=== PATIENT | male | born 2000 | race Caucasian/White ===

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

== ENCOUNTER 2021-02-08 00:51 | Emergency (ER) | payer SELFPAY ==
[2021-02-08] VITALS (9 sets, daily range): BP systolic 109–149; BP diastolic 63–96; PULSE 60–114; RESP 12–26; TEMP 37.1; O2SAT 96–100
--- NOTE | ~2021-02-08 | CT_ITS ---
EXAMINATION: CTA chest PE protocol EXAM DATE: 02/08/2021 02:12 INDICATION: Chest pain, shortness of breath elevated d-dimer. TECHNIQUE: Spiral CTA of the chest (pulmonary arteries) was performed with 100 cc Omnipaque 350 intr avenous contrast injection. Images were acquired during the pulmonary arterial phase. Coronal maxi mum intensity projection 3D-reconstructions were created by the technologist on dedicated workstation . Axial, coronal and sagittal reformatted images were reviewed. The dose-length product (DLP) for t his examination was 266.83 mGy-cm. The exposure was tailored according to patient size (auto mA exp osure control), and iterative reconstruction (ASIR) was used as additional dose reduction technique. There is no prior study for comparison. FINDINGS: Pulmonary arteries are well opacified and without intraluminal filling defects. No thora cic aortic dissection. The lungs are clear. There are no pleural or pericardial effusions. Trach eobronchial tree is patent. There is no mediastinal, hilar or axillary lymphadenopathy. There is no pneumothorax. Heart normal in size. No evidence of coronary arterial calcification. Upper abd omen is unremarkable. There is thoracic spondylosis without osteoblastic or osteolytic lesions iden tified. IMPRESSION: Normal CT pulmonary exam. Reviewed, dictated and finalized at location A. IMPRESSION: Normal CT pulmonary exam.
--- NOTE | 2021-02-08 01:02 | ECG_ITS ---
Measurements Intervals [place] Rate: 98 P: 69 MD: 130 QRS: 48 QRSD: 93 T: 60 QT: 341 QTc: 436 Interpretive Statements SINUS RHYTHM WITH SINUS ARRHYTHMIA INCOMPLETE RIGHT BUNDLE BRANCH BLOCK BORDERLINE ST ABNORMALITY- LATERAL LEADS BASELINE ARTIFACT- I, II, AVR, AVL BORDERLINE ECG Electronically Signed On 02-08-2021 6:52:13 CDT by Raimundo Michelle D.O.
[2021-02-08 01:15] LABS: Basophils Percent Auto 0.3 % (0.2-1.2); Eosinophils Absolute Auto 0.1 K/mm3 (0-0.3); Eosinophils Percent Auto 1.5 % (0-4.4); Hematocrit 45.5 % (42.0-52.0); Hemoglobin 16.6 g/dL (14.0-18.0); Immature Granulocyte Absolute 0.02 K/mm3 (0.00-0.031); Immature Granulocyte Percent A 0.2 % (0-0.5); Lymphocytes Absolute Auto 4.03 K/mm3 (0.9-3.2); Lymphocytes Percent Auto 46.4 % (18.3-44.2); Mean Corpuscular HGB Conc 36.5 g/dl (32-36); Mean Corpuscular Hemoglobin 32.7 pg (26-34); Mean Corpuscular Volume 89.7 fl (80-100); Monocytes Absolute Auto 0.9 K/mm3 (0.1-0.6); Monocytes Percent Auto 10.8 % (2.6-8.5); Neutrophils Absolute Auto 3.5 K/mm3 (1.3-6.7); Neutrophils Percent Auto 40.8 % (45.5-73.1); Platelet Count Result 214 k/mm3 (150-375); Red Blood Count 5.07 M/mm3 (4.6-6.20); Red Cell Distribution Width 11.8 % (11.5-14.5); White Blood Count 8.7 K/mm3 (4.5-10.0)
[2021-02-08 01:24] LABS: Prothrombin Time 12.6 Seconds (11.1-14.7)
[2021-02-08 01:25] LABS: Partial Thromboplastin Time 23.8 SECONDS (22.3-36.8)
[2021-02-08 01:28] LABS: Alanine Aminotransferase 14 U/L (4-50); Albumin Level 5.3 g/dL (3.7-5.6); Alkaline Phosphatase 63 U/L (58-237); Anion Gap 16 mmol/L (8-16); Aspartate Amino Transferase 26 U/L (17-59); Blood Urea Nitrogen 18 mg/dL (8-21); Calcium 10.2 mg/dL (8.9-10.7); Carbon Dioxide 22 mmol/L (22-30); Chloride 102 mmol/L (98-107); Estimated Glomerular Filt Rate > 60; Glucose 110 mg/dL (65-110); Potassium 3.2 mmol/L (3.4-5.0); Sodium 140 mmol/L (134-143)
[2021-02-08 01:29] LABS: D Dimer 0.81 ug/mL (<0.48)
[2021-02-08] MEDS: KETOROLAC 30 MG/ML VIAL (*BKC) IM (01:29)
--- NOTE | 2021-02-08 01:31 | ED.GENADULT ---
HPI - General Adult General Chief complaint: Shortness of Breath/Dyspnea Stated complaint: sob, loss of appetite, CARLOS, cp Time Seen by Provider: 02/08/21 00:57 History of Present Illness HPI narrative: Patient is a 20-year-old gentleman who presents the emergency department with chief complaint of shortness of breath cough body aches. Patient works at [employer] and multiple coworkers were also ill with similar symptoms. Patient states one of his colleagues was diagnosed with pneumonia today and he was concerned that he may have developed pneumonia. Patient reports he has not been vaccinated for COVID-19 reports that he has been tested 3 other times for Covid and has been negative with those time Related Data Allergies Allergy/AdvReac Type Severity Reaction Status Date / Time No Known Allergies Allergy Verified 02/08/21 01:11 Review of Systems Review of Systems: A 10 system review of systems was completed on the patient and is negative except for what is stated in the HPI. Nursing and ancillary documentation was reviewed. [facility] Past Medical History Medical History ADHD Anxiety Healthy adult male OCD (obsessive compulsive disorder) Surgical History Surgical History No history of previous surgery No pertinent past surgical history Family History Family History Mother No pertinent past medical history Social History Social History Smoking status: Never smoker Alcohol intake: never Substance use: never Additional living arrangements comments: lives with sister Gender identity (if verbalized by the patient): Male Spiritual care concerns: No Exam Narrative: GENERAL: Well-appearing, well-nourished, and in no acute distress. HEAD: Normocephalic, atraumatic. EYES: PERRLA and EOMI. ENT: Nares clear, no rhinorrhea or epistaxis. Mucous membranes moist. NECK: Supple. CHEST: Clear to auscultation. No respiratory distress. HEART: Regular rate and rhythm. No murmur heard. Normal peripheral pulses. ABDOMEN: Soft, nontender, nondistended, normal active bowel sounds. EXTREMITIES: Normal range of motion. No edema. SKIN: Warm, dry, no rash. NEURO: No focal deficits. Alert and oriented x3. PSYCH: Normal mood and affect. Course Vital Signs Vital signs: Vital Signs Temperature 37.1 C 02/08/21 00:55 Pulse Rate 114 H 02/08/21 00:55 Respiratory Rate 16 02/08/21 00:55 Blood Pressure 138/83 02/08/21 00:55 Pulse Oximetry 100 02/08/21 00:55 Temperature 37.1 C 02/08/21 00:55 Pulse Rate 63 02/08/21 03:01 Respiratory Rate 19 02/08/21 03:01 Blood Pressure 109/66 02/08/21 03:01 Pulse Oximetry 97 02/08/21 03:01 Medical Decision Making Vital Signs Vital Signs: Vital Signs Temperature 37.1 C 02/08/21 00:55 Pulse Rate 114 H 02/08/21 00:55 Respiratory Rate 16 02/08/21 00:55 Blood Pressure 138/83 02/08/21 00:55 Pulse Oximetry 100 02/08/21 00:55 Temperature 37.1 C 02/08/21 00:55 Pulse Rate 63 02/08/21 03:01 Respiratory Rate 19 02/08/21 03:01 Blood Pressure 109/66 02/08/21 03:01 Pulse Oximetry 97 02/08/21 03:01 Lab Data Result diagrams: 02/08/21 01:10 02/08/21 01:10 Labs: Lab Results 02/08/21 02/08/21 02/08/21 Range/Units 01:10 01:10 01:10 WBC 8.7 (4.5-10.0) K/mm3 RBC 5.07 (4.6-6.20) M/mm3 Hgb 16.6 (14.0-18.0) g/dL Hct 45.5 (42.0-52.0) % MCV 89.7 (80-100) fl MCH 32.7 (26-34) pg MCHC 36.5 H (32-36) g/dl RDW 11.8 (11.5-14.5) % Plt Count 214 (150-375) k/mm3 MPV 9.0 (7.4-10.4) fl Immature Gran % (Auto) 0.2 (0-0.5) % Neut % (Auto) 40.8 L (45.5-73.1) % Lymph % (Auto) 46.4 H (18.3-44.2) % Mon
[2021-02-08 01:40] LABS: NT Pro B Type Natriuretic Pept 18 pg/mL (5-100); Troponin I < 0.012 ng/mL (0.000-0.034)
--- NOTE | 2021-02-08 01:55 | PC.NURSE ---
Pt to imaging at this time.
[2021-02-08 02:34] LABS: EDCOVIDSCREEN Negative (Negative)
== END 2021-02-08 03:25 | disposition home or self-care (01) ==
PROVIDERS: Emergency Provider Emergency Medicine; PCP Family Medicine
DX: J20.8 Acute bronchitis due to other specified organisms (principal); R07.89 Other chest pain; Z20.822 Contact with and (suspected) exposure to COVID-19
CPT/HCPCS: 36415; 71275; 80053; 83880; 84484; 85025; 85380; 85610; 85730; 87426; 93005; 96372; 99284; C9803; J1885; Q9967

== ENCOUNTER 2023-11-26 19:47 | Emergency (ER) | payer BC, SELFPAY ==
--- NOTE | ~2023-11-26 | CT_ITS ---
CT abdomen pelvis wo con Ordering provider: Kassi Marcial PA-C History: . low abd pain/ testicular pain . Comparison: None. Technique: CT abdomen without IV and without oral contrast. The dose-length product was 230.4 mGy-cm. . Findings: VISUALIZED LOWER CHEST: Normal. UPPER ABDOMINAL ORGANS: Liver: Normal. Gallbladder: Normal. Spleen: Normal. Stomach/duodenum: Normal. Pancreas: Normal. Adrenals: Normal. Kidneys: Normal. VISUALIZED BOWEL AND MESENTERY: No evidence of diverticulitis. Normal appendix. Fluid is seen in the small bowel which may indicate enteritis are in the area. Clinical correlation advised. No free air o r free fluid. No mesenteric lymphadenopathy. RETROPERITONEUM: Normal aorta. No retroperitoneal lymphadenopathy. MUSCULOSKELETAL: The superficial soft tissues are normal. Normal spine. IMPRESSION: No acute abdominal process with no evidence of obstruction, diverticulitis or appendicitis. Fluid filled small bowel loops are noted which may indicate diarrhea or enteritis. Clinical correlati on advised. Reviewed, dictated and finalized at location A. IMPRESSION: No acute abdominal process with no evidence of obstruction, diverticulitis or a ppendicitis. Fluid filled small bowel loops are noted which may indicate diarrhea or enterit is. Clinical correlation advised.
--- NOTE | ~2023-11-26 | US_ITS ---
TESTICULAR ULTRASOUND (Doppler ultrasound interrogation techniques used as needed for this exam.) Ordering provider: Kassi Marcial PA-C History: . testicular pain . Comparison: None. FINDINGS: TESTICLES: Normal in size. The right measures 5x 3x 2.9 cm and the left measures 4.8x 2.9x 3 cm. Norm al echogenicity bilaterally without mass lesion. Normal Doppler flow bilaterally. Appendix testis is seen in the right side measuring 0.4 x 0.2 x 0.2 cm. EPIDIDYMIDES: Normal in size. The right measures 0.9 cm and the left 0.9 cm. Normal echogenicity hank aterally. Both demonstrate normal Doppler flow. HYDROCELE: Right with debris. VARICOCELE: The right measures 0.3 cm in the left 0.2 cm. OTHER ABNORMALITY: None seen. IMPRESSION: Right hydrocele. No evidence of torsion. Otherwise, normal testicular ultrasound. Reviewed, dictated and finalized at location A. IMPRESSION: Right hydrocele. No evidence of torsion. Otherwise, normal testicular ultrasoun d.
[2023-11-26 20:24] VITALS: BP 139/92; PULSE 79; RESP 21; TEMP 37.1; O2SAT 100
[2023-11-26 20:55] LABS: Appearance Urine Clear (Clear); Bilirubin Urine Negative (Negative); Blood Urine Negative (Negative); Color Urine Yellow (Yellow); Glucose Urine UA Negative (Negative); Ketones Urine Negative (Negative); Leukocyte Esterase Ur Negative LEU/UL (Negative); Nitrate Urine Negative (Negative); Protein Urine Negative (Negative); Specific Grav Ur 1.023 (1.001-1.035); Urobilinogen Urine 0.2 mg/dL (<2.0)
[2023-11-26 21:03] LABS: Add Urine Microscopic? NO
[2023-11-26] MEDS: KETOROLAC 30 MG/ML VIAL (*BKC) IM (21:15)
[2023-11-26 22:01] LABS: Trichomonas Vag PCR NOT DETECTED (NOT DETECTE)
[2023-11-26] MEDS: MORPHINE SULFATE (*CRX) 4 MG/ML INJ IV PUSH (22:16)
--- NOTE | 2023-11-26 22:16 | ED.MALEGU ---
HPI - Male Genitourinary General Chief complaint: Urogenital-Male Stated complaint: testicle pain Time Seen by Provider: 11/26/23 20:28 Source: patient Mode of arrival: ambulatory Limitations: no limitations History of Present Illness HPI Narrative: This is a 23-year-old male that presents to the emergency department for right testicular pain. Ongoing over the last week. Worsening tonight. Reports some associated dysuria. Denies fever, vomiting, or hematuria. Related Data Allergies Allergy/AdvReac Type Severity Reaction Status Date / Time No Known Allergies Allergy Verified 02/08/21 01:11 Review of Systems Review of Systems: CONSTITUTIONAL: Denies fever GASTROINTESTINAL: Reports abdominal pain, nausea. Denies vomiting, or diarrhea. GENITOURINARY: Reports dysuria. Denies hematuria. SKIN: Denies rash All systems reviewed & are unremarkable except as noted in HPI and below PMFSH Past Medical History Medical History ADHD Anxiety Healthy adult male OCD (obsessive compulsive disorder) Surgical History Surgical History No history of previous surgery No pertinent past surgical history Family History Family History Mother No pertinent past medical history Social History Social History Smoking status: Never smoker Alcohol intake: never Substance use: never Living arrangements: with family Additional living arrangements comments: lives with sister Gender identity (if verbalized by the patient): Male Spiritual care concerns: No Exam Narrative: GENERAL: Well-appearing, well-nourished, and in no acute distress. HEAD: Normocephalic, atraumatic. EYES: EOMI. CHEST: No respiratory distress. HEART: Regular rate ABDOMEN: Soft, nontender, nondistended, normal active bowel sounds. EXTREMITIES: Normal range of motion. No edema. SKIN: Warm, dry, no rash. NEURO: No focal deficits. Alert and oriented x3. PSYCH: Normal mood and affect MALE GENITAL: Normal external genitalia. No erythema or edema of the scrotum. Right testicle tender to palpation. No abnormal rashes or lesions. No abnormal urethral discharge Course Course Emergency Course: patient updated on his workup and agrees with plan of care Vital Signs Vital signs: Vital Signs Temperature 98.8 F 11/26/23 20:24 Pulse Rate 79 11/26/23 20:24 Respiratory Rate 21 H 11/26/23 20:24 Blood Pressure 139/92 H 11/26/23 20:24 Pulse Oximetry 100 11/26/23 20:24 Oxygen Delivery Room Air 11/26/23 20:24 Temperature 98.8 F 11/26/23 20:24 Pulse Rate 48 L 11/26/23 23:34 Respiratory Rate 13 11/26/23 23:34 Blood Pressure 118/66 11/26/23 23:34 Pulse Oximetry 99 11/26/23 23:34 Oxygen Delivery Room Air 11/26/23 20:24 MDM - Male Genitourinary MDM Narrative Medical decision making narrative: patient presents to the emergency department for right testicular pain. Ongoing over the last week. Reports similar episodes of this that have been ongoing over the last 3 years. He has not seen urology for this. He is afebrile and nontoxic appearing. His vitals are stable. CBC with mild leukocytosis to 12.9. Also shows normocytic anemia hemoglobin 13.9. Metabolic panel with mild hypokalemia. This was replaced. Urine without evidence of infection. Chlamydia, gonorrhea, Trichomonas are negative. CT abdomen pelvis shows findings of diarrhea. Scrotal ultrasound shows a right hydrocele. No evidence of torsion. Patient updated on his workup and agrees with plan of care. He will be given follow-up with urology. He was given warnings to return to the ER Differential Diagnosis Differential diagnosis: Likely urinary tract infection, urethritis, epididymitis and other ( testicular tors
[2023-11-26] MEDS: ONDANSETRON INJ 4 MG/2 ML VIAL IV PUSH (22:17)
[2023-11-26 22:25] LABS: Chlamydia trachomatis NOT DETECTED (NOT DETECTE); Neisseria gonorrhoeae PCR NOT DETECTED (NOT DETECTE)
[2023-11-26 22:45] VITALS: BP 116/69; PULSE 61; RESP 15; O2SAT 99
[2023-11-26 22:57] LABS: Basophils Absolute Auto 0.1 K/mm3 (0.0-0.1); Basophils Percent Auto 0.4 % (0.2-1.2); Eosinophils Percent Auto 0.2 % (0-4.4); Hematocrit 37.5 % (42.0-52.0); Hemoglobin 13.9 g/dL (14.0-18.0); Immature Granulocyte Absolute 0.05 K/mm3 (0.00-0.031); Immature Granulocyte Percent A 0.4 % (0-0.5); Lymphocytes Absolute Auto 1.94 K/mm3 (0.9-3.2); Mean Corpuscular HGB Conc 37.1 g/dl (32-36); Mean Corpuscular Hemoglobin 33.8 pg (26-34); Mean Corpuscular Volume 91.2 fl (80-100); Mean Platelet Volume 8.8 fl (7.4-10.4); Monocytes Percent Auto 8.1 % (2.6-8.5); Neutrophils Absolute Auto 9.8 K/mm3 (1.3-6.7); Neutrophils Percent Auto 75.9 % (45.5-73.1); Platelet Count Result 185 k/mm3 (150-375); Red Blood Count 4.11 M/mm3 (4.6-6.20); Red Cell Distribution Width 11.9 % (11.5-14.5); White Blood Count 12.9 K/mm3 (4.5-10.0)
[2023-11-26 23:07] LABS: Anion Gap 12 mmol/L (4-12); Blood Urea Nitrogen 17 mg/dL (9-20); Calcium 9.8 mg/dL (8.4-10.2); Carbon Dioxide 18 mmol/L (22-30); Chloride 108 mmol/L (98-107); Estimated CRCL calculation 112 ml/min; Estimated Glomerular Filt Rate > 60; Glucose 102 mg/dL (65-110); Potassium 3.2 mmol/L (3.4-5.0); Sodium 138 mmol/L (137-145)
[2023-11-26 23:23] LABS: Magnesium 1.8 mg/dL (1.6-2.3)
[2023-11-26 23:34] VITALS: BP 118/66; PULSE 48; RESP 13; O2SAT 99
[2023-11-26] MEDS: POTASSIUM CHLORIDE 20 MEQ ER TABLET 40 MEQ PO (23:34)
== END 2023-11-27 | disposition home or self-care (01) ==
PROVIDERS: Emergency Provider Physician Assistant
DX: N50.811 Right testicular pain (principal); E87.6 Hypokalemia; N43.3 Hydrocele, unspecified; Z79.899 Other long term (current) drug therapy
CPT/HCPCS: 36415; 74176; 76870; 80048; 81003; 83735; 85025; 87491; 87591; 87661; 93976; 96372; 96374; 96375; 99284; A9270; J1885; J2270; J2405

== ENCOUNTER 2024-10-08 22:05 | Emergency (ER) | payer SELFPAY ==
--- NOTE | ~2024-10-08 | XR_ITS ---
Portable chest x-ray Comparison: None Clinical History: Chest pain Findings: Lungs are clear, without focal consolidation or pleural effusion. Cardiomediastinal silho uette is unremarkable. Bones and soft tissues are unremarkable. Impression: Normal chest. Reviewed, dictated and finalized at location . Impression: Normal chest.
--- NOTE | ~2024-10-08 | CT_ITS ---
Clinical Indication: Abdominal pain, chest pain CT Scan of the Chest, Abdomen, and Pelvis with Contrast: Technique: Contiguous sections were acquired throughout the chest, abdomen, and pelvis after intraven ous administration of 100 cc of Omnipaque 350. Dose reduction technique was used on this scan by eladia wiggins automated exposure control and iterative reconstruction technique. The dose-length product (DL P) was 286.71 mGy-cm. Findings: There is no evidence of any significant mediastinal, hilar or axillary lymphadenopathy. The mediastin al soft tissues appear normal. There is no evidence of pleural or pericardial effusion. The lungs are clear. No pulmonary nodules or infiltrates are noted. The liver, spleen, pancreas, gallbladder, adrenals and kidneys are within normal limits. No evidence of aortic aneurysm. No lymphadenopathy. No bowel obstruction or bowel wall thickening. There is no evidence to suggest acute appendicitis. Urinary bladder is unremarkable. No pelvic mass seen. No ascites. Impression: No significant abnormalities seen. Reviewed, dictated and finalized at [facility]. Impression: No significant abnormalities seen.
[2024-10-08 22:05] VITALS: PULSE 72; RESP 16; TEMP 36.9; O2SAT 100
--- NOTE | 2024-10-08 22:11 | ECG_ITS ---
Test Date: 2024-10-08 22:11:26 Measurements Intervals [place] Rate: 71 P: 45 [place]: 131 QRS: 52 QRSD: 101 T: 45 QT: 368 QTc: 401 Interpretive Statements SINUS RHYTHM No previous ECG available for comparison Electronically Signed On 10-10-2024 14:11:37 CDT by Jennifer Barry M.D.
[2024-10-08 22:12] VITALS: BP 125/79; PULSE 66; PULSE 71; RESP 32; O2SAT 100
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
[2024-10-08] MEDS: HYDROmorphone HCL INJ (*CRX) 2 MG/ML VIAL 0.5 MG IV PUSH (22:35)
[2024-10-08] MEDS: ONDANSETRON INJ 4 MG/2 ML VIAL IV PUSH (22:35)
[2024-10-08] MEDS: MAG HYDROX/AL HYDROX/SIMETH 30 ML UDC PO (22:35)
[2024-10-08] MEDS: FAMOTIDINE 20 MG/2 ML VIAL IV PUSH (22:35)
[2024-10-08 22:59] LABS: Lactic Acid Reflex 2.2 mmol/L (0.7-2.0)
[2024-10-08 23:01] LABS: Alanine Aminotransferase 32 U/L (6-50); Alkaline Phosphatase 49 U/L (38-126); Anion Gap 11 mmol/L (4-12); Aspartate Amino Transferase 33 U/L (17-59); Basophils Absolute Auto 0.1 K/mm3 (0.0-0.1); Basophils Percent Auto 0.6 % (0.2-1.2); Bilirubin,Total 0.4 mg/dL (0.2-1.3); Blood Urea Nitrogen 14 mg/dL (9-20); Calcium 9.9 mg/dL (8.4-10.2); Carbon Dioxide 21 mmol/L (22-30); Chloride 106 mmol/L (98-107); Eosinophils Absolute Auto 0.1 K/mm3 (0-0.3); Estimated CRCL calculation 117 ml/min; Estimated Glomerular Filt Rate > 60; Glucose 75 mg/dL (65-110); Hematocrit 40.6 % (42.0-52.0); Hemoglobin 14.2 g/dL (14.0-18.0); Immature Granulocyte Absolute 0.04 K/mm3 (0.00-0.031); Immature Granulocyte Percent A 0.5 % (0-0.5); Lipase 68 U/L (23-300); Lymphocytes Absolute Auto 2.67 K/mm3 (0.9-3.2); Lymphocytes Percent Auto 31.1 % (18.3-44.2); Mean Corpuscular Hemoglobin 32.9 pg (26-34); Mean Platelet Volume 9.4 fl (7.4-10.4); Monocytes Absolute Auto 0.8 K/mm3 (0.1-0.6); Monocytes Percent Auto 9.1 % (2.6-8.5); Neutrophils Percent Auto 57.7 % (45.5-73.1); Phosphorus 1.8 mg/dL (2.5-4.5); Platelet Count Result 190 k/mm3 (150-375); Potassium 4.2 mmol/L (3.4-5.0); Red Blood Count 4.32 M/mm3 (4.6-6.20); Red Cell Distribution Width 12.3 % (11.5-14.5); Sodium 138 mmol/L (137-145); White Blood Count 8.6 K/mm3 (4.5-10.0)
[2024-10-08 23:10] LABS: Add Urine Microscopic? NO; Appearance Urine Clear (Clear); Bilirubin Urine Negative (Negative); Blood Urine Negative (Negative); Color Urine Yellow (Yellow); Glucose Urine UA Negative (Negative); Ketones Urine Negative (Negative); Leukocyte Esterase Ur Negative LEU/UL (Negative); Nitrate Urine Negative (Negative); Protein Urine Negative (Negative); Specific Grav Ur 1.006 (1.001-1.035); Urobilinogen Urine 0.2 mg/dL (<2.0)
[2024-10-08 23:12] LABS: Troponin I < 0.012 ng/mL (0.000-0.034)
[2024-10-08 23:16] LABS: Amphetamine Screen Urine Negative (Negative); Barbiturate Screen Urine Negative (Negative); Benzodiazepines Screen Urine Negative (Negative); Cannabinoid Screen Urine Positive (Negative); Cocaine Screen Urine Negative (Negative); Methadone Screen Urine Negative (Negative); Opiate Screen Urine Negative (Negative); Phencyclidine Screen Urine Negative (Negative)
[2024-10-08 23:22] LABS: Partial Thromboplastin Time 23.9 Seconds (22.3-36.8); Prothrombin Time 13.2 Seconds (11.1-14.7)
[2024-10-09 00:07] VITALS: BP 118/66; PULSE 59; RESP 27; O2SAT 100
[2024-10-09 00:48] LABS: Reflex Lactic Acid Yes or No Add Lactic
--- NOTE | 2024-10-09 01:34 | ED.GENADULT ---
HPI - General Adult General Chief complaint: Chest Pain Stated complaint: chest pain Time Seen by Provider: 10/08/24 22:09 History of Present Illness HPI narrative: This is a 24-year-old male with history of chronic GERD presenting with chest pain and epigastric pain. Patient says he has burning pain in the epigastric area radiating up into his chest. It is severe in intensity. He has had pain like this many times in the past however has never been this bad. Associated with nausea and vomiting. He denies fevers chills shortness of breath. He has also been having diarrhea although this is a chronic problem. Related Data Allergies Allergy/AdvReac Type Severity Reaction Status Date / Time No Known Allergies Allergy Verified 10/08/24 22:15 [facility] Past Medical History Medical History ADHD OCD (obsessive compulsive disorder) Anxiety Healthy adult male Surgical History Surgical History No pertinent past surgical history No history of previous surgery Family History Family History Mother No pertinent past medical history Social History Social History Smoking status: Never smoker Alcohol intake: never Substance use: never Living arrangements: with family Additional living arrangements comments: lives with sister Gender identity (if verbalized by the patient): Male Spiritual care concerns: No Exam Narrative: APPEARANCE: Patient appears uncomfortable Head: atraumatic. EYES: EOMI, NOSE: Atraumatic NECK: Trachea midline RESPIRATORY: No increased rate of breathing CTAB CARDIOVASCULAR: RRR, no peripheral edema ABDOMINAL: Tenderness in the epigastric area, no guarding no rebound no CVA tenderness MUSCULOSKELETAl: No obvious deformities NEURO: Alert. Moving 4/4 extremities SKIN:: Warm, dry. Normal color PSYCHIATRIC: Normal affect Course Vital Signs Vital signs: Vital Signs Temperature 98.5 F 10/08/24 22:05 Pulse Rate 72 10/08/24 22:05 Respiratory Rate 16 10/08/24 22:05 Pulse Oximetry 100 10/08/24 22:05 Oxygen Delivery Room Air 10/08/24 22:05 Temperature 98.5 F 10/08/24 22:05 Pulse Rate 55 L 10/09/24 01:45 Respiratory Rate 14 10/09/24 01:45 Blood Pressure 114/84 10/09/24 01:45 Pulse Oximetry 99 10/09/24 01:45 Oxygen Delivery Room Air 10/08/24 22:12 Medical Decision Making MDM Narrative Medical decision making narrative: -Course: 24-year-old male present with epigastric pain radiating to his chest. It is associated with nausea vomiting. Laboratory studies within normal limits. Urine drug screen positive for cannabinoids. Patient's symptoms were treated with Dilaudid and Zofran and Maalox. I was notified by nursing staff that the patient was going to leave unless we removed his IV because he says it was hurting him. Examination IV did not reveal any redness evidence of infiltration or thrombophlebitis. The IV was removed at his request. Clinically his pain improved but he was still complaining of severe nausea. He is given 5 mg of IM Haldol. Patient said that he wanted to go outside to get some fresh air. He then left without completing treatment. -DDX includes but is not limited to: Gastritis, GERD, cyclic vomiting Vital Signs Vital Signs: Vital Signs Temperature 98.5 F 10/08/24 22:05 Pulse Rate 72 10/08/24 22:05 Respiratory Rate 16 10/08/24 22:05 Pulse Oximetry 100 10/08/24 22:05 Oxygen Delivery Room Air 10/08/24 22:05 Temperature 98.5 F 10/08/24 22:05 Pulse Rate 55 L 10/09/24 01:45 Respiratory Rate 14 10/09/24 01:45 Blood Pressure 114/84 10/09/24 01:45 Pulse Oximetry 99 10/09/24 01:45 Oxygen Delivery Room Air 10/08/24 22:12 Lab Data 10/08/24 22:38 10/08/24 22:38 Labs: Lab Results 10/08/24 10/08/24 10/08/24 Range/Units 22:38 22:42 22:53 WBC 8.6 (4.5-10.0) K/mm3 RBC 4.32 L (4.6-6.20) M/mm3 Hgb 14.2 (14.0-18.0) g/dL Hct 40.6 L (42.0-52.0) % MCV 94.0 (80-100) fl MCH 32.9 (26-34) pg MCHC 35.0 (32-36) g/dl RDW 12.3 (11.5-14.5) % Plt Count 190 (150-375) k/mm3 MPV 9.4 (7.4-10.4) fl Immature Gran % (Auto) 0.5 (0-0.5) % Neut % (Auto) 57.7 (45.5-73.1) % Lymph % (Auto) 31.1 (18.3-44.2) % [place] % (Auto) 9.1 H (2.6-8.5) % Eos % (Auto) 1.0 (0-4.4) % Baso % (Auto) 0.6 (0.2-1.2) % Lymph # (Auto) 2.67 (0.9-3.2) K/mm3 [place] # (Auto) 0.8 H (0.1-0.6) K/mm3 Eos # (Auto) 0.1 (0-0.3) K/mm3 Baso # (Auto) 0.1 (0.0-0.1) K/mm3 Abs Immat Gran (auto) 0.04 H (0.00-0.031) K/mm3 Absolute Neuts (auto) 5.0 (1.3-6.7) K/mm3 Absolute Nucleated RBC 0.000 (0.0-0.012) K/mm3 Nucleated RBC % 0.0 (0.0-0.2) % PT 13.2 (11.1-14.7) Seconds INR 1.0 APTT 23.9 (22.3-36.8) Seconds Sodium 138 (137-145) mmol/L Potassium 4.2 (3.4-5.0) mmol/L Chloride 106 (98-107) mmol/L Carbon Dioxide 21 L (22-30) mmol/L Anion Gap 11 (4-12) mmol/L BUN 14 (9-20) mg/dL Creatinine 0.76 (0.7-1.3) mg/dL Estim Creat Clear Calc 117 ml/min Estimated GFR > 60 (59 - ) Glucose 75 (65-110) mg/dL Lactic Acid 2.2 H (0.7-2.0) mmol/L Calcium 9.9 (8.4-10.2) mg/dL Phosphorus 1.8 L (2.5-4.5) mg/dL Magnesium 2.0 (1.6-2.3) mg/dL Total Bilirubin 0.4 (0.2-1.3) mg/dL AST 33 (17-59) U/L ALT 32 (6-50) U/L Alkaline Phosphatase 49 (38-126) U/L Troponin I < 0.012 (0.000-0.034) ng/mL Total Protein 8.0 (6.3-8.2) g/dL Albumin 5.0 (3.5-5.1) g/dL Lipase 68 (23-300) U/L Urine Color Yellow (Yellow) Urine Appearance Clear (Clear) Urine pH 7.0 (5.0-9.0) Ur Specific [place] 1.006 (1.001-1.035) Urine Protein Negative (Negative) mg/dL Urine Glucose (UA) Negative (Negative) mg/dL Urine Ketones Negative (Negative) mg/dL Ur Blood (Man) Negative (Negative) Urine Nitrate Negative (Negative) Urine Bilirubin Negative (Negative) Urine Urobilinogen 0.2 (<2.0) mg/dL Leukocyte Esterase Rfl Negative (Negative) DON/UL Urine Opiates Screen (Negative) Urine Methadone Screen (Negative) Ur Barbiturates Screen (Negative) Ur Phencyclidine Scrn (Negative) Ur Amphetamine Screen (Negative) U Benzodiazepines Scrn (Negative) Urine Cocaine Screen (Negative) U Cannabinoids Screen (Negative) 10/08/24 10/09/24 Range/Units 22:54 01:36 WBC (4.5-10.0) K/mm3 RBC (4.6-6.20) M/mm3 Hgb (14.0-18.0) g/dL Hct (42.0-52.0) % MCV (80-100) fl MCH (26-34) pg MCHC (32-36) g/dl RDW (11.5-14.5) % Plt Count (150-375) k/mm3 MPV (7.4-10.4) fl Immature Gran % (Auto) (0-0.5) % Neut % (Auto) (45.5-73.1) % Lymph % (Auto) (18.3-44.2) % [place] % (Auto) (2.6-8.5) % Eos % (Auto) (0-4.4) % Baso % (Auto) (0.2-1.2) % Lymph # (Auto) (0.9-3.2) K/mm3 [place] # (Auto) (0.1-0.6) K/mm3 Eos # (Auto) (0-0.3) K/mm3 Baso # (Auto) (0.0-0.1) K/mm3 Abs Immat Gran (auto) (0.00-0.031) K/mm3 Absolute Neuts (auto) (1.3-6.7) K/mm3 Absolute Nucleated RBC (0.0-0.012) K/mm3 Nucleated RBC % (0.0-0.2) % PT (11.1-14.7) Seconds INR APTT (22.3-36.8) Seconds Sodium (137-145) mmol/L Potassium (3.4-5.0) mmol/L Chloride (98-107) mmol/L Carbon Dioxide (22-30) mmol/L Anion Gap (4-12) mmol/L BUN (9-20) mg/dL Creatinine (0.7-1.3) mg/dL Estim Creat Clear Calc ml/min Estimated GFR (59 - ) Glucose (65-110) mg/dL Lactic Acid < 0.5 L (0.7-2.0) mmol/L Calcium (8.4-10.2) mg/dL Phosphorus (2.5-4.5) mg/dL Magnesium (1.6-2.3) mg/dL Total Bilirubin (0.2-1.3) mg/dL AST (17-59) U/L ALT (6-50) U/L Alkaline Phosphatase (38-126) U/L Troponin I 0.030 D (0.000-0.034) ng/mL Total Protein (6.3-8.2) g/dL Albumin (3.5-5.1) g/dL Lipase (23-300) U/L Urine Color (Yellow) Urine Appearance (Clear) Urine pH (5.0-9.0) Ur Specific [place] (1.001-1.035) Urine Protein (Negative) mg/dL Urine Glucose (UA) (Negative) mg/dL Urine Ketones (Negative) mg/dL Ur Blood (Man) (Negative) Urine Nitrate (Negative) Urine Bilirubin (Negative) Urine Urobilinogen (<2.0) mg/dL Leukocyte Esterase Rfl (Negative) DON/UL Urine Opiates Screen Negative (Negative) Urine Methadone Screen Negative (Negative) Ur Barbiturates Screen Negative (Negative) Ur Phencyclidine Scrn Negative (Negative) Ur Amphetamine Screen Negative (Negative) U Benzodiazepines Scrn Negative (Negative) Urine Cocaine Screen Negative (Negative) U Cannabinoids Screen Positive A (Negative) Discharge Plan Discharge Clinical Impression: Chest pain due to GERD, Cannabis use disorder Patient Disposition: Elopement After Seen by Prov Condition: Stable Instructions: Antibiotic Form, GERD (Gastroesophageal Reflux Disease) (DC) Patient Language: [place] Prescriptions: No Action cephalexin 500 mg capsule 500 mg PO Q6H Qty: 40 0RF albuterol sulfate 90 mcg/actuation HFA aerosol inhaler 2 puff inhalation QID PRN (Reason: shortness of breath or wheezing) Qty: 8.5 0RF benzonatate 200 mg capsule 200 mg PO TID PRN (Reason: cough) Qty: 21 0RF naproxen 500 mg tablet 500 mg PO BID PRN (Reason: pain) 5 Days Qty: 10 0RF Follow-up/Referrals: PHYSICIAN,MANAGER WIND [Primary Care Provider] -
[2024-10-09] MEDS: POTASSIUM/PHOSPHORUS/SODIUM 1.5 GM PACKET 1 PACKET PO (01:41)
[2024-10-09 01:45] VITALS: BP 114/84; PULSE 55; RESP 14; O2SAT 99
[2024-10-09] MEDS: HALOPERIDOL LACTATE 5 MG/ML VIAL IM (01:54)
--- NOTE | 2024-10-09 01:57 | PC.NURSE ---
patient stating that he would like to have his IV removed due to pain. edp dr. stevens verbalized confirmation that patient IV could be removed at this time. this rn removed iv catheter which was intact upon removal.
[2024-10-09 02:05] LABS: Lactic Acid < 0.5 mmol/L (0.7-2.0)
--- NOTE | 2024-10-09 02:16 | PC.NURSE ---
patient verbalized that he wanted to fresh air and did not want to stay in the room anymore or wait for ct report from provider. pt states that he is aware of the risks of leaving. patient was able to ambulate with a steady unassisted gait towards the exit of the ed.
== END 2024-10-09 02:26 | disposition left against medical advice (07) ==
PROVIDERS: Emergency Provider Emergency Medicine
DX: K21.9 Gastro-esophageal reflux disease without esophagitis (principal); F12.90 Cannabis use, unspecified, uncomplicated
CPT/HCPCS: 36415; 71045; 71260; 74177; 80053; 80307; 81003; 83605; 83690; 83735; 84100; 84484; 85025; 85610; 85730; 93005; 96372; 96374; 96375; 99284; A9270; J1171; J1630; J2405; Q9967